=== PATIENT | female | born 1990 | race Caucasian/White ===

== ENCOUNTER 2022-10-02 08:35 | Outpatient (CLI) | payer OTHER | END 2022-10-02 08:36 | disposition home or self-care (01) | LOC: SCSMRI 08:35 | PROVIDERS: ATTEND Family Medicine | DX: S89.91XA Unspecified injury of right lower leg, initial encounter (principal); S83.241A Other tear of medial meniscus, current injury, right knee, initial encounter ==

== ENCOUNTER 2022-11-18 09:00 | Outpatient (CLI) | payer SELFPAY ==
[2022-11-18 10:50] LABS: Hemoglobin 13.6 g/dL (12.0-15.5); Mean Corpuscular HGB CONC 33.2 g/dL (32.0-36.0); Mean Corpuscular Hemoglobin 29.6 pg (27.0-33.0); Mean Corpuscular Volume 89.3 fl (81.6-98.3); Mean Platelet Volume 9.7 fl (7.4-10.4); Platelet Count 373 10x3/uL (150-450); RBC Distribution Width 12.4 % (11.5-14.5); Red Blood Cell (RBC) Count 4.59 10x6/uL (3.90-5.03); White Blood Cell (WBC) Count 7.8 10x3/uL (3.5-10.5)
[2022-11-18 10:51] LABS: BHCG - Serum Negative (NEGATIVE); Pregs Control Bar Appear? YES (CONTROL BAR)
[2022-11-18 10:52] LABS: Pregs Control Background? CLEAR/WHITE (CLR/WHITE)
[2022-11-18 10:55] LABS: Anion Gap 14 mmol/L (10-20); BUN (Urea Nitrogen) 11 mg/dL (7.0-18.7); Calc. Creatinine Clearance 0 mL/min (70-130); Calcium 8.9 mg/dL (7.8-10.44); Carbon Dioxide 22 mmol/L (22-29); Chloride 105 mmol/L (98-107); Estimated GFR 96; Glucose 82 mg/dL (70-105); Potassium 4.1 mmol/L (3.5-5.1); Sodium 137 mmol/L (136-145)
[2022-11-18 11:15] LABS: MDiff Complete? YES
[2022-11-18 11:18] LABS: Lymphocytes 21 % (21-51); Monocytes 5 % (0-10); Neutrophil 73 % (42-75)
[2022-11-18 11:19] LABS: Platelet Adequacy Comment Appears Adequate; RBC Morph Comment Within Normal Limits
== END 2022-11-18 09:01 | disposition home or self-care (01) ==
LOC: LABBT 09:00
PROVIDERS: ATTEND Orthopaedic Surgery
DX: Z01.818 Encounter for other preprocedural examination (principal); S83.231A Complex tear of medial meniscus, current injury, right knee, initial encounter
CPT/HCPCS: 80048; 84703; 85025; 93005; 93010

== ENCOUNTER 2022-11-19 05:28 | Day surgery (SDC) | payer OTHER ==
[2022-11-18 09:17] VITALS: BMI 17.4
[2022-11-19] MEDS ORDERED: fentaNYL PF 100 MCG/2 ML SYRINGE ONE (06:19)
[2022-11-19] MEDS ORDERED: CEFAZOLIN 2 GM VIAL ONE (06:51)
[2022-11-19] MEDS ORDERED: Sodium Chloride 0.9% 100 ML ONE (06:51)
[2022-11-19] MEDS ORDERED: Midazolam HCl 2 mg/2 ml Vial ONE (06:58)
[2022-11-19] MEDS ORDERED: Ondansetron PF 4 MG/2 ML Vial ONE ×2 (06:59→07:15)
[2022-11-19] MEDS ORDERED: Lidocaine 1% PF 5 ML VIAL ONE (07:15)
[2022-11-19] MEDS ORDERED: Dexamethasone 20 MG/5 ML VIAL ONE (07:15)
[2022-11-19] MEDS ORDERED: PROPOFOL 200 MG/20 ML VIAL ONE (07:15)
[2022-11-19] MEDS ORDERED: Bupivacaine 0.25% HCL 30 ML VIAL ONE (07:33)
[2022-11-19] MEDS ORDERED: EPINEPHrine 1 MG/ML AMP ONE (07:33)
[2022-11-19] MEDS ORDERED: Lidocaine 1% (PF) 30 ML VIAL ONE (07:33)
== END 2022-11-19 10:20 | disposition home or self-care (01) ==
LOC: SDC 05:28
PROVIDERS: ATTEND Orthopaedic Surgery
PROC: 0SBC4ZZ Excision of Right Knee Joint, Percutaneous Endoscopic Approach (ICD-10-PCS; principal; 2022-11-19)
DX: S83.231A Complex tear of medial meniscus, current injury, right knee, initial encounter (principal); S83.211A Bucket-handle tear of medial meniscus, current injury, right knee, initial encounter; F90.9 Attention-deficit hyperactivity disorder, unspecified type; Z79.899 Other long term (current) drug therapy; X50.1XXA Overexertion from prolonged static or awkward postures, initial encounter
CPT/HCPCS: J0171; J1100; J2001; J2250; J2405; J2704; J3490; S0020